=== PATIENT | female | born 1980 | race American Indian/Alaskan Native ===

== ENCOUNTER 2017-08-11 20:59 | Inpatient (IN) | payer MEDICAID, OTHER ==
[2017-08-11] MEDS ORDERED: LACTATED RINGERS 500 ML IV ONE (21:26)
[2017-08-11] MEDS ORDERED: LACTATED RINGERS 1,000 ML IV ONE (21:26)
[2017-08-11] MEDS ORDERED: LACTATED RINGERS 1,000 ML ONE (21:30)
[2017-08-12] MEDS ORDERED: PEPCID IV ONE (00:35)
[2017-08-12] MEDS ORDERED: BICITRA PO ONE (00:35)
[2017-08-12] MEDS ORDERED: REGLAN IV ONE (00:35)
--- NOTE | 2017-08-12 00:41 | History and Physical Report ---
History of Present Illness Date of examination: 08/12/17 Date of admission: 08/12/2017 Chief complaint: I haven't felt the baby move History of present illness: Patient francois 37 year old who presents at 33.1 weeks with complaint of decreased movement. FHT were in the 170s with minimal variability. BPP was ordered which showed 2/8 for fluid only. Past History Past Medical History: hypertension Past Surgical History: no surgical history [employer] History: herpes Family/Genetic History: none Social history: - Obstetrical History Expected Date of Delivery: 09/28/17 Actual Gestation: 33 Week(s) 2 Day(s) : 7 Para: 5 Number of Living Children: 4 #2 Infant Gender: Female year: Method of Delivery: Vaginal Complications: other (IUFD at term) Medications and Allergies Allergies Allergy/AdvReac Type Severity Reaction Status Date / Time No Known Allergies Allergy Verified 08/11/17 21:26 Active Meds: Active Medications Citric Acid/Sodium Citrate (Bicitra) 30 ml PO ONCE ONE Stop: 08/12/17 00:36 Famotidine (Pepcid) 20 mg IV ONCE ONE Stop: 08/12/17 00:36 Cefazolin Sodium (Ancef/Sterile Water 2 Gm/20 Ml) 2 gm in 20 mls @ 80 mls/hr IV PREOP NR PRN Reason: Protocol Lactated Ringer's (Lactated Ringers) 1,000 mls @ 2,250 mls/hr IV PREOP PEPPER Stop: 08/13/17 01:27 Oxytocin/Sodium Chloride (Pitocin/Ns 20 Unit/1000ml Drip) 20 units in 1,000 mls @ 0 mls/hr IV TITR PEPPER PRN Reason: As Directed Metoclopramide HCl (Reglan) 10 mg IV ONCE ONE Stop: 08/12/17 00:36 Review of Systems All systems: negative Genitourinary: other (decreased movement) - Vital Signs Vital signs: Vital Signs Pulse BP Pulse Ox 81 163/98 100 08/11/17 21:12 08/11/17 21:12 08/11/17 21:12 Temp Pulse Resp BP Pulse Ox 94 H 174/109 100 08/12/17 00:34 08/12/17 00:34 08/12/17 00:34 - Physical Exam Breasts: Cardiovascular: Regular rate, Normal S1, Normal S2 Lungs: Positive: Clear to auscultation, Normal air movement Abdomen: Positive: normal appearance, soft, normal bowel sounds. Negative: distention, tenderness Genitourinary (Female): Positive: normal external genitalia, normal perenium Vulva: both: normal Vagina: Positive: normal moisture. Negative: discharge Cervix: Negative: lesion, discharge Uterus: Positive: normal size, normal contour Adnexa: both: normal Anus/Rectum: Positive: normal perianal skin, heme negative. Negative: rectal mass, hemorrhoids Extremities: Deep Tendon Reflex Grade: Normal +2 - Obstetrical FHR: auscultation normal, category 2 Cervical Dilatation: 0 Results All other labs normal. Assessment and Plan IUp at 33.2 weeks with non reassuring testing and 2/8 bpp. Fetus has nuchal cord x 3. Will proceed with urgent for well-being. Consents signed and placed on chart.
--- NOTE | 2017-08-12 00:46 | Ultrasound Report ---
FINAL REPORT EXAM: US OB BPP WO NON-STRESS HISTORY: DECREASED MOVEMENT TECHNIQUE: A limited sonographic evaluation was obtained of the uterus with biophysical profile. FINDINGS: A biophysical profile was performed. A score of 0 out of 2 was obtained for breathing movements. A score of 0 out of 2 was obtained for movements. A score of 0 out of 2 was obtained force posture and tone. For qualitative amniotic fluid volume a score of 2 out of 2 was obtained. The total biophysical profile score was 2 out of 8. The heart rate ranged from 100 BPM up to 171 BPM. The umbilical cord was noted to be around the neck 3 times. A complete survey of organs was not obtained. In the uterine fundus there is a myometrial mass most likely representing fibroid measuring 4.7 cm x 5.3 cm x 5.1 cm. IMPRESSION: Biophysical profile score of 2 out of 8. heart rate ranged from 100 BPM up to 171 BPM. The umbilical cord is wrapped around the neck up to 3 times. Fibroid in the uterine fundus measuring 5.3 cm in dimension.
[2017-08-12 00:49] LABS: Basophils % (Auto) 0.3 % (0.0-1.8); Eosinophils % (Auto) 1.1 % (0.0-4.3); Hematocrit 32.5 % (30.3-42.9); Hemoglobin 10.9 gm/dl (10.1-14.3); Mean Corpuscular HGB Conc 34 % (30-34); Mean Corpuscular Hemoglobin 32 pg (28-32); Mean Corpuscular Volume 96 fl (79-97); Platelet Count 172 K/mm3 (140-440); Red Blood Count 3.38 M/mm3 (3.65-5.03); Red Cell Distribution Width 13.3 % (13.2-15.2); White Blood Count 6.2 K/mm3 (4.5-11.0)
[2017-08-12] MEDS ORDERED: ANCEF/STERILE WATER 2 GM/20 ML 2 GM/20 ML SYRINGE IV NR (01:00)
[2017-08-12] MEDS ORDERED: LACTATED RINGERS 1,000 ML IV SCH (01:00)
[2017-08-12] MEDS ORDERED: PITOCin/NS 20 UNIT/1000ML DRIP 20 UNITS/1,000 ML BAG IV SCH ×2 (01:00→04:21)
[2017-08-12] MEDS ORDERED: ANCEF/STERILE WATER 2 GM/20 ML IV ONE (01:20)
[2017-08-12] MEDS ORDERED: MORPHINE ONE (01:24)
[2017-08-12] MEDS ORDERED: TORADOL ONE (01:41)
[2017-08-12] MEDS ORDERED: WATER FOR IRRIG STERILE IR ONE (01:41)
[2017-08-12] MEDS ORDERED: NACL 0.9% IR ONE (01:41)
--- NOTE | 2017-08-12 02:35 | Procedure Note ---
OB Delivery Note - Delivery Date of Delivery: 08/12/17 Surgeon: PAMELA FORD Estimated blood loss: 500cc - Section Preop diagnosis: nonreassuring FHR tracing Postop diagnosis: same (with nuchal cord x 5) section procedure: primary low transverse Disposition: PACU Complications: none Narrative: see op report - A at 1 minute: 3 at 5 minutes: 3 (8 at 10 minutes) Infant Gender: Male
--- NOTE | 2017-08-12 02:40 | Operative Report ---
Operative Report Operative Report: The operative report for patient name Rani Del Castillo Date of service 08/12/2017 Preoperative diagnosis: Intrauterine at 33-2/7 weeks 2. Nonreassuring testing Postoperative diagnosis: Same with nuchal cord 5 Procedure:[ Primary] low transverse section Surgeon: Dr. Silvia Rodriguez EBL: 500 Urine output: 800 mL IV fluids: 1000 mL Findings: Viable [male] in the vertex occiput posterior position. Weight 4 lbs. 10 oz., 2086 g, Apgars 3,3,8 ,4 cm fundal subserosal fibroid Specimens: None Complications: None Procedure: The patient was admitted to the OR with IV running and in place. She was properly identified as herself. Her spinal was placed upon entry into the OR without difficulty. She was placed in the dorsal supine position with a leftward tilt. A Suresh catheter was inserted. She was then prepped and draped in the normal sterile fashion. An Allis test was used to confirm adequate anesthesia. Once confirmed, the incision was made with the scalpel and carried to the underlying fascia using the scalpel and the Bovie. The fascia was incised in the midline and incision was extended bilaterally using the curved Fischer scissors. The fascia was then dissected from the underlying rectus muscles in a series of sharp and blunt dissection using the Fischer scissors. Muscles were in the in the midline sharply using Metzenbaum scissors and the peritoneum was entered into bluntly using the surgeon's fingers. A bladder blade was then placed into the incision to protect the bladder. Following this the bladder flap was created. Hysterotomy incision was then made in the scalpel. Upon uterine entry, the amniotic sac was ruptured for clear fluid. The was then delivered in the occiput [ posterior] position. His mouth and nose were suctioned on the field. The cord was clamped and cut after which it was unwrapped from his neck. And he was handed to the waiting NICU personnel. The uterus was then exteriorized and cleared of all clots and debris. The hysterotomy incision was then closed in a running locked fashion using 0 Vicryl. The abdomen was then copiously irrigated with warm normal saline. Following this the uterus was replaced into the abdominal cavity. At this point the muscles were reapproximated in the midline using individual sutures of 0 Vicryl. Following this the fascia was closed in a running fashion using 0 Vicryl. Tissue was then copiously irrigated. Skin was closed in a running fashion using 3-0 Monocryl. The sponge lap needle and instrument counts were correct 2. The patient tolerated the procedure well. She was taken to recovery in stable condition.
--- NOTE | 2017-08-12 02:40 | Anesthesia Consultation ---
Anesthesia Consult and Med Hx Date of service: 08/12/17 - Airway Anesthetic Teeth Evaluation: Good ROM Head & Neck: Adequate Mental/Hyoid Distance: Adequate Mallampati Class: Class II Intubation Access Assessment: Good - Pulmonary Exam CTA: Yes - Cardiac Exam Cardiac Exam: No Murmur - Pre-Operative Health Status ASA Pre-Surgery Classification: ASA2 Proposed Anesthetic Plan: Spinal - Pulmonary Hx Asthma: No - Cardiovascular System Hx Hypertension: Yes - Central Nervous System Hx Seizures: No Hx Psychiatric Problems: No - Endocrine Hx Renal Disease: No Hx Hypothyroidism: No Hx Hyperthyroidism: No - Hematic Hx Anemia: No Hx Sickle Cell Disease: No - Other Systems Hx Alcohol Use: No
[2017-08-12] MEDS ORDERED: MORPHINE IV PRN ×2 (02:41→04:21)
[2017-08-12] MEDS ORDERED: PHENERGAN PR PRN ×2 (02:41→04:21)
[2017-08-12] MEDS ORDERED: PHENERGAN PO PRN (02:41)
[2017-08-12] MEDS ORDERED: NARCAN 0.4 MG/1 ML IV PRN ×2 (02:41→04:21)
--- NOTE | 2017-08-12 02:41 | Post Anesthesia Evaluation ---
- Post Anesthesia Evaluation Patient Participated: Yes Airway Patent: Yes Stable Respiratory Function: Yes Nausea/Vomiting: No Temp > 96.8F: Yes Pain Manageable: Yes Adequeate Hydration: Yes Anesthesia Complications: No
[2017-08-12] MEDS ORDERED: SODIUM CHLORIDE FLUSH SYRINGE 10 ML IV NR ×2 (03:00→04:21)
[2017-08-12] MEDS ORDERED: fentaNYL-BUPIV 2 MCG/ML-0.125% 200 MCG/100 ML BAG EPIDURAL SCH (03:00)
[2017-08-12] MEDS ORDERED: LANSINOH TP PRN (04:21)
[2017-08-12] MEDS ORDERED: MYLICON PO PRN (04:21)
[2017-08-12] MEDS ORDERED: TUCKS PAD TP PRN (04:21)
[2017-08-12] MEDS ORDERED: D5LR 1,000 ML IV SCH (04:21)
[2017-08-12] MEDS ORDERED: ZOFRAN IV PRN (04:21)
[2017-08-12] MEDS ORDERED: TORADOL IV PRN (04:21)
[2017-08-12] MEDS: ZOFRAN IV PRN ×2 (04:44→12:10)
[2017-08-12 17:22] LABS: Hematocrit 31.4 % (30.3-42.9); Hemoglobin 10.4 gm/dl (10.1-14.3)
[2017-08-13] MEDS: MOTRIN PO PRN ×2 (02:08→18:00)
[2017-08-13] MEDS: PERCOCET 5/325 PO PRN ×2 (02:09→10:20)
--- NOTE | 2017-08-13 09:40 | Progress Note ---
Subjective Date of service: 08/13/17 Interval history: Pt is doing well. No residual numbness. Objective - Constitutional Vitals: Vital Signs - 12hr 08/13/17 08/13/17 08/13/17 00:25 04:45 08:00 Temperature 98.7 F 98.7 F 98.4 F Pulse Rate 78 74 83 Respiratory 18 18 18 Rate Blood Pressure 148/71 127/74 135/71 [Right] O2 Sat by Pulse 99 Oximetry - Labs CBC & Chem 7: 08/12/17 16:48
[2017-08-13] MEDS: PRENATAL VITAMIN PO SCH (10:20)
[2017-08-13] MEDS: FEOSOL PO SCH (12:13)
--- NOTE | 2017-08-13 14:41 | Progress Note ---
Subjective - Subjective Date of service: 08/13/17 Interval history: Patient francois 37 year old who presents at 33.1 weeks with complaint of decreased movement. FHT were in the 170s with minimal variability. BPP was ordered which showed 2/8 for fluid only. Patient reports: appetite normal, voiding normally, pain well controlled, ambulating normally : doing well Objective - Vital Signs Latest vital signs: Vital Signs Temp Pulse Resp BP Pulse Ox 08/13/17 08:00 98.4 F 83 18 135/71 99 08/13/17 04:45 98.7 F 74 18 127/74 08/13/17 00:25 98.7 F 78 18 148/71 08/12/17 21:30 98.6 F 69 22 125/72 08/12/17 17:04 97.6 F 63 18 133/74 Intake and Output 08/12/17 08/13/17 08/13/17 22:59 06:59 14:59 Intake Total 1600 100 240 Output Total 300 1200 Balance 1300 -1100 240 Intake: IV 1000 D5lr 1,000 ml @ 125 mls/ 1000 hr IV DIRECT PEPPER Rx#: [id number] Oral 360 240 Intake, Free Water 240 100 Output: Urine 300 1200 Void 300 1200 Other: Total, Intake Amount 360 240 Total, Output Amount 300 700 # Voids Void 1 - Exam Breasts: Present: deferred Cardiovascular: Present: Regular rate, Normal S1 Lungs: Present: Clear to auscultation, Normal air movement Abdomen: Present: normal appearance, soft, normal bowel sounds Uterus: Present: normal, firm Extremities: Present: normal Incision: Present: normal, dry, intact, warm
[2017-08-13] MEDS: MILK OF MAGNESIA PO PRN (23:51)
[2017-08-14] MEDS: MOTRIN PO PRN ×2 (05:00→16:11)
[2017-08-14] MEDS: FEOSOL PO SCH (10:11)
[2017-08-14] MEDS: PRENATAL VITAMIN PO SCH (10:12)
[2017-08-14] MEDS: PERCOCET 5/325 PO PRN (10:12)
[2017-08-14] MEDS: MILK OF MAGNESIA PO PRN (18:43)
[2017-08-15] MEDS: MOTRIN PO PRN (06:49)
--- NOTE | 2017-08-15 09:53 | Discharge Summary ---
Providers - Providers Date of Admission: 08/12/17 01:06 Date of discharge: 08/15/17 Attending physician: PAMELA FORD Primary care physician: PAMELA FORD Hospitalization Reason for admission: other (non reassurring testing) Delivery: Procedure: primary low transverse Incision: normal, dry, intact complications: none Discharge diagnosis: delivery baby: male Hospital course: unremarkable Condition at discharge: Good Disposition: DC-01 TO HOME OR SELFCARE Plan - Discharge Medications Prescriptions: Docusate Sodium [Colace] 100 mg PO BID PRN #60 capsule PRN Reason: Constipation Ferrous Sulfate [Feosol 325 MG tab] 325 mg PO BID #60 tablet Ibuprofen [Motrin] 800 mg PO Q8HR PRN #40 tablet PRN Reason: Pain Oxycodone HCl/Acetaminophen [Percocet 7.5/325 mg] 1 each PO Q6HR PRN #50 tablet PRN Reason: Pain - Provider Discharge Summary Activity: routine, no sex for 6 weeks, no heavy lifting 4 weeks, no strenuous exercise Diet: routine Instructions: routine Additional instructions: [] Smoking cessation referral if applicable(refer to patient education folder for contact #) [] Refer to [facility] Booklet Call your doctor immediately for: * Fever > 100.5 * Heavy vaginal bleeding ( >1 pad per hour) * Severe persistent headache * Shortness of breath * Reddened, hot, painful area to leg or breast * Drainage or odor from incision. * Keep incision clean and dry at all times and follow doctor's instructions regarding bathing/showering - Follow up plan Follow up: PAMELA FORD MD [Primary Care Provider] - 14 Days
[2017-08-15] MEDS: PRENATAL VITAMIN PO SCH (11:00)
[2017-08-15] MEDS: FEOSOL PO SCH (11:01)
[2017-08-15 12:31] VITALS: BP 126/82
== END 2017-08-15 11:43 | disposition home or self-care (01) | DRG 765 ==
LOC: TRG 20:59 → APU 08-12 01:06 → OB 08-12 04:20
PROVIDERS: ADMIT Obstetrics & Gynecology; ATTEND Obstetrics & Gynecology
PROC: 10D00Z1 Extraction of Products of Conception, Low, Open Approach (ICD-10-PCS; principal; 2017-08-12)
PROC: 10907ZC Drainage of Amniotic Fluid, Therapeutic from Products of Conception, Via Natural or Artificial Opening (ICD-10-PCS; 2017-08-12)
DX: O60.14X0 Preterm labor third trimester with preterm delivery third trimester, not applicable or unspecified (principal); O16.4 Unspecified maternal hypertension, complicating childbirth; O76 Abnormality in fetal heart rate and rhythm complicating labor and delivery; O69.81X0 Labor and delivery complicated by cord around neck, without compression, not applicable or unspecified; Z3A.33 33 weeks gestation of pregnancy; Z37.0 Single live birth
CPT/HCPCS: 36415; 76819; 85014; 85018; 85025; 86850; 86900; 86901; 88307; J0690; J1885; J2270; J2405; J2590; J2765; J7120; J7121

== ENCOUNTER 2022-01-28 06:50 | Outpatient (CLI) | payer MEDICAID ==
[2022-01-28] MEDS ORDERED: LACTATED RINGERS 1,000 ML IV ONE (08:00)
[2022-01-28 08:08] LABS: Bacteria,Urine 3+ /HPF (Negative); Bilirubin,Urine NEG (Negative); Blood,Urine NEG (Negative); Color,Urine Yellow (Yellow); Hyaline Casts,Urine 1 /LPF; Mucus,Urine FEW /HPF; Protein,Urine <15 mg/dL mg/dL (Negative)
--- NOTE | 2022-01-28 08:59 | Ultrasound Report ---
ULTRASOUND BIOPHYSICAL PROFILE INDICATION: well being. COMPARISON: None available. FINDINGS: heart rate is 145 beats per minute. breathing movement = 2 Gross body movement = 2 tone = 2 Qualitative amniotic fluid volume = 2 IMPRESSION: biophysical profile = 04/12 Signer Name: Kota Devine Jr, MD Signed: 01/28/2022 8:54 AM Workstation Name: [id number]
[2022-01-28 09:31] LABS: Hematocrit 32.7 % (30.3-42.9); Hemoglobin 10.8 gm/dl (10.1-14.3); Mean Corpuscular HGB Conc 33 % (30-34); Mean Corpuscular Volume 95 fl (79-97); Platelet Count 220 K/mm3 (140-440); Red Blood Count 3.44 M/mm3 (3.65-5.03)
[2022-01-28 09:43] LABS: Alanine Aminotransferase 11 units/L (7-56)
[2022-01-28 09:52] VITALS: BP 129/80
== END 2022-01-28 10:27 | disposition home or self-care (01) ==
LOC: TRG 06:50 → APU 06:51 → TRG 10:27
PROVIDERS: ATTEND Obstetrics & Gynecology
DX: O36.8130 Decreased fetal movements, third trimester, not applicable or unspecified (principal); Z3A.31 31 weeks gestation of pregnancy
CPT/HCPCS: 36415; 59025; 76819; 81001; 82565; 83615; 84450; 84460; 84550; 85027; 96360; 96361; J7120

== ENCOUNTER 2022-03-12 09:00 | Outpatient (CLI) | payer MEDICAID ==
[2022-03-16 10:37] LABS: Hematocrit 31.6 % (30.3-42.9); Hemoglobin 10.6 gm/dl (10.1-14.3); Mean Corpuscular HGB Conc 34 % (30-34); Mean Corpuscular Volume 94 fl (79-97); Platelet Count 224 K/mm3 (140-440); Red Blood Count 3.37 M/mm3 (3.65-5.03); Red Cell Distribution Width 14.1 % (13.2-15.2)
[2022-03-16 16:43] VITALS: BP 143/87
== END 2022-03-12 23:59 | disposition home or self-care (01) ==
LOC: TRG 09:00 → APU 09:23 → UNDOADMOB 09:23 → INTOOBSV 09:23 → EDSTATUS 11:30 → UNDODISOB 13:50 → TRG 23:59
PROVIDERS: ATTEND Obstetrics & Gynecology
DX: O09.523 Supervision of elderly multigravida, third trimester (principal); O13.3 Gestational [pregnancy-induced] hypertension without significant proteinuria, third trimester; O99.353 Diseases of the nervous system complicating pregnancy, third trimester; G43.909 Migraine, unspecified, not intractable, without status migrainosus; Z3A.37 37 weeks gestation of pregnancy; Z20.822 Contact with and (suspected) exposure to COVID-19
CPT/HCPCS: 36415; 59025; 85027; 86592; U0003; 96360; G0378; G0379

== ENCOUNTER 2022-03-19 06:30 | Inpatient (IN) | payer MEDICAID ==
[2022-03-19] MEDS ORDERED: BICITRA ORAL LIQD 30ML PO SCH (13:22)
[2022-03-19] MEDS ORDERED: LACTATED RINGERS 1,000 ML IV SCH (13:30)
[2022-03-19 13:58] LABS: Basophils # (Auto) 0.2 K/mm3 (0.0-0.1); Eosinophils # (Auto) 0.1 K/mm3 (0.0-0.4); Eosinophils % (Auto) 1.1 % (0.0-4.3); Hematocrit 32.6 % (30.3-42.9); Lymphocytes # (Auto) 1.1 K/mm3 (1.2-5.4); Lymphocytes % (Auto) 18.2 % (13.4-35.0); Mean Corpuscular HGB Conc 34 % (30-34); Mean Corpuscular Volume 94 fl (79-97); Monocytes # (Auto) 0.4 K/mm3 (0.0-0.8); Monocytes % (Auto) 7.4 % (0.0-7.3); Platelet Count 226 K/mm3 (140-440); Red Blood Count 3.47 M/mm3 (3.65-5.03); Red Cell Distribution Width 14.3 % (13.2-15.2)
[2022-03-19] MEDS ORDERED: FAMOTIDINE 20 MG/2 ML INJ IV ONE (14:00)
[2022-03-19] MEDS ORDERED: OXYTOCIN DRIP 30 UNITS/500 ML BAG IV SCH (14:00)
[2022-03-19] MEDS ORDERED: METOCLOPRAMIDE 10 MG/2 ML INJ IV ONE (14:00)
--- NOTE | 2022-03-19 22:13 | History and Physical Report ---
History of Present Illness Date of examination: 03/19/22 Date of admission: 03/19/22 09:49 Chief complaint: I am here for my History of present illness: Patient is a 41-year-old 7 para 4 who presents for elective repeat at 39 weeks secondary to previous . Patient had a last C- section in 2016 secondary to nonreassuring heart tones. Prior to that she had a stillborn and has 2 other living children. Patient has a history of DVT and blood clots and has been on Lovenox therapy throughout the course of her . Past History Past Medical History: hypertension, hematologic disorders Past Surgical History: section Social history: - Obstetrical History Expected Date of Delivery: 03/26/22 Actual Gestation: 39 Week(s) 0 Day(s) : 9 Para: 4 Number of Living Children: 3 Medications and Allergies Allergies Allergy/AdvReac Type Severity Reaction Status Date / Time No Known Allergies Allergy Verified 03/19/22 13:22 Home Medications Medication Instructions Recorded Confirmed Last Taken Type Aspirin [Adult Aspirin] 81 mg PO DAILY 03/12/22 03/12/22 03/10/22 History Enoxaparin [Lovenox] 40 mg SQ Q12HR 03/12/22 03/12/22 03/11/22 History Vit-Fe Fumar-FA [ 1 tab PO QDAY 03/12/22 03/12/22 03/11/22 History Vitamin] labetaloL [Labetalol 200mg TAB] 200 mg PO BID 03/12/22 03/12/22 03/11/22 History Active Meds: Active Medications Citric Acid/Sodium Citrate (Bicitra Oral Liqd 30ml) 30 ml PO ONCE PEPPER Stop: 03/19/22 23:00 Lactated Ringer's (Lactated Ringers) 1,000 mls @ 2,250 mls/hr IV PREOP PEPPER Stop: 03/20/22 13:57 Oxytocin/Sodium Chloride (Pitocin/Ns 30 Unit/500ml) 30 units in 500 mls @ 0 mls/hr IV TITR PEPPER; Protocol Review of Systems All systems: negative - Vital Signs Vital signs: Vital Signs Pulse BP 78 154/88 03/19/22 12:26 03/19/22 12:26 Temp Pulse Resp BP Pulse Ox 101 H 140/88 100 03/19/22 22:06 03/19/22 18:25 03/19/22 22:06 - Physical Exam Breasts: Positive: deferred Cardiovascular: Regular rate, Normal S1, Normal S2 Lungs: Positive: Clear to auscultation, Normal air movement Abdomen: Positive: normal appearance, soft, normal bowel sounds. Negative: di stention, tenderness Genitourinary (Female): Positive: normal external genitalia, normal perenium Vulva: both: normal Vagina: Positive: normal moisture. Negative: discharge Cervix: Negative: lesion, discharge Uterus: Positive: normal size, normal contour Adnexa: both: normal Anus/Rectum: Positive: normal perianal skin, heme negative. Negative: rectal mass, hemorrhoids Extremities: Deep Tendon Reflex Grade: Normal +2 - Obstetrical FHR: auscultation normal Results Result Diagrams: 03/19/22 13:40 Abnormal lab results 03/19/22 Range/Units 13:40 RBC 3.47 L (3.65-5.03) M/mm3 [place] % (Auto) 7.4 H (0.0-7.3) % Baso % (Auto) 3.0 H (0.0-1.8) % Lymph # (Auto) 1.1 L (1.2-5.4) K/mm3 Baso # (Auto) 0.2 H (0.0-0.1) K/mm3 Seg Neutrophils % 70.3 H (40.0-70.0) % All other labs normal. Assessment and Plan IUP at 39 weeks here for repeat . We will admit for monitoring and make patient n.p.o. after midnight. Patient to have in the morning.
[2022-03-20] MEDS ORDERED: BICITRA ORAL LIQD 30ML PO ONE (07:35)
[2022-03-20] MEDS ORDERED: LACTATED RINGERS 1,000 ML IV SCH (07:45)
[2022-03-20] MEDS ORDERED: ceFAZolin/Water 2 GM/20 ML 2 GM/20 ML SYRINGE IV NR (08:00)
[2022-03-20] MEDS ORDERED: BICITRA ORAL LIQD 30ML ONE (10:05)
[2022-03-20] MEDS ORDERED: FAMOTIDINE 20 MG/2 ML INJ IV ONE (10:05)
[2022-03-20] MEDS ORDERED: METOCLOPRAMIDE 10 MG/2 ML INJ ONE (10:05)
[2022-03-20] MEDS ORDERED: NALOXONE 0.4 MG/1 ML INJ IV PRN ×2 (10:25→15:14)
[2022-03-20] MEDS ORDERED: BUPIVACAINE/PF (0.5%) 5 MG/1 ML 30 ML VIAL INFILTRATI ONE (11:00)
[2022-03-20] MEDS ORDERED: diphenhydrAMINE 50 MG/ML VIAL IV PRN (11:00)
[2022-03-20] MEDS ORDERED: PROMETHAZINE 25 MG RECT SUPP PR PRN (11:00)
[2022-03-20] MEDS ORDERED: KETOROLAC 30 MG/1 ML INJ ONE (11:00)
[2022-03-20] MEDS ORDERED: HYDROmorphone 1 MG/1 ML INJ IV PRN (11:00)
[2022-03-20] MEDS ORDERED: NalbUPHINE 10 MG/1 ML INJ IV PRN (11:00)
[2022-03-20] MEDS ORDERED: ONDANSETRON 4 MG/2 ML INJ IV PRN (11:00)
[2022-03-20] MEDS ORDERED: ONDANSETRON 4 MG/2 ML INJ ONE (11:00)
[2022-03-20] MEDS ORDERED: PHENYLEPHRINE/NS 1,000 MCG/10 ML SYRINGE (OR USE) IV ONE (11:00)
[2022-03-20] MEDS ORDERED: PROMETHAZINE 25 MG TAB PO PRN (11:00)
[2022-03-20] MEDS ORDERED: ceFAZolin/STERILE WATER 2 GM/20 ML SYRINGE IV ONE (11:05)
[2022-03-20] MEDS ORDERED: SODIUM CHLORIDE 0.9% IRR 1,500 ML BOTTLE IR ONE (11:05)
[2022-03-20] MEDS ORDERED: WATER FOR IRRIG STERILE 1,500 ML BOTTLE IR ONE (11:05)
[2022-03-20] MEDS ORDERED: LACTATED RINGERS 1,000 ML ONE (11:26)
[2022-03-20] MEDS ORDERED: METHYLERGONOVINE MALEATE 0.2 MG/ML VIAL IM ONE (11:55)
[2022-03-20] MEDS ORDERED: fentaNYL 100 MCG/2 ML INJ ONE (11:58)
--- NOTE | 2022-03-20 12:40 | Anesthesia Day of Surgery ---
Anesthesia Day of Surgery - Day of Surgery Patient Examined: Yes Patient H&P Reviewed: Yes Patient is NPO: Yes Beta Blockers: No Cardiac Clearance: No Pulmonary Clearance: No Jonas's Test: N/A
--- NOTE | 2022-03-20 12:41 | Anesthesia Consultation ---
Anesthesia Consult and Med Hx Date of service: 03/20/22 - Airway Anesthetic Teeth Evaluation: Good ROM Head & Neck: Adequate Mental/Hyoid Distance: Adequate Mallampati Class: Class II Intubation Access Assessment: Probably Good - Pulmonary Exam CTA: Yes - Cardiac Exam Cardiac Exam: RRR - Pre-Operative Health Status ASA Pre-Surgery Classification: ASA2 Proposed Anesthetic Plan: Spinal Nerve Block: TAP - Pulmonary Hx Smoking: No Hx Asthma: No COPD: No Hx Pneumonia: No Hx Sleep Apnea: No - Cardiovascular System Hx Hypertension: No Hx Heart Attack/AMI: No Hx Angina: No - Central Nervous System Hx Seizures: No Hx Psychiatric Problems: No - Gastrointestinal Hx Gastroesophageal Reflux Disease: No - Endocrine Hx Renal Disease: No Hx End Stage Renal Disease: No Hx Liver Disease: No Hx Insulin Dependent Diabetes: No Hx Non-Insulin Dependent Diabetes: No Hx Hypothyroidism: No Hx Hyperthyroidism: No - Hematic Hx Anemia: No Hx Sickle Cell Disease: No - Other Systems Hx Alcohol Use: No Hx Obesity: Yes - Additional Comments Anesthesia Medical History Comments: previous c/s
--- NOTE | 2022-03-20 12:42 | Progress Note ---
Spinal Anesthesia Block - Spinal Anesthesia Block Start Time: 10:40 Stop Time: 10:45 Performed by:: CLEVELAND SINGH Procedure: Spinal anesthesia block is being performed for [c/s]. H&P, labs have been reviewed. Patient's questions and concerns have been answered. Informed consent has been performed. Timeout has was performed. Patient in sitting position on side of bed. Sterile prep and drape was performed. 3 mL 1% lidocaine skin wheal at L [3]-L [4]. Needle introducer advanced. 24-gauge spinal needle advanced, [+] CSF [-] blood. [Marcaine 10mg and Precedex 5mcg] Spinal dose was given. All needles removed. Patient tolerated procedure well.
--- NOTE | 2022-03-20 12:59 | Procedure Note ---
OB Delivery Note - Delivery Date of Delivery: 03/20/22 Surgeon: PAMELA FORD Estimated blood loss: other (750) - Section Preop diagnosis: repeat Postop diagnosis: same section procedure: repeat low transverse, bilateral tubal ligation Disposition: PACU Complications: none Narrative: See op report - Infant A at 1 minute: 8 at 5 minutes: 9 Infant Gender: Female (7 pounds 1 ounce, 3210 g)
--- NOTE | 2022-03-20 13:03 | Operative Report ---
Operative Report Operative Report: Preoperative diagnosis: Intrauterine at 38-7 weeks 2. Previous x1 3. Undesired fertility Postoperative diagnosis: Same with pelvic adhesions Procedure: Repeat low transverse section, Bilateral tubal ligation Surgeon: Dr. Silvia Rodriguez EBL: 750 cc Urine output: 200 mL IV fluids: 1500 cc Findings: Viable female in the occiput posterior position weight 7 lbs. 1 oz. 3210 g Apgars 8 and 9. Otherwise normal pelvic anatomy Specimens: Portion of right and left fallopian tube Complications: None Procedure: The patient was admitted to the OR with IV running and in place. She was properly identified as herself. She was given spinal anesthesia in the OR without difficulty. She was placed in the dorsal supine position with a leftward tilt. A Suresh catheter was inserted. She was then prepped and draped in the normal sterile fashion. An Allis test was used to confirm adequate anesthesia. Once confirmed, the incision was made with the scalpel and carried to the underlying fascia using the scalpel and the Bovie. The fascia was incised in the midline and incision was extended bilaterally using the curved Fischer scissors. The fascia was then dissected from the underlying rectus muscles in a series of sharp and blunt dissection using the Fischer scissors. The fascia was densely adherent to the underlying muscle. Muscles were in the in the midline sharply using Metzenbaum scissors and the peritoneum was entered into bluntly using the surgeon's fingers. A bladder blade was then placed into the incision to protect the bladder. Following this the bladder flap was created. Hysterotomy incision was then made in the scalpel. Upon uterine entry, the amniotic sac was ruptured for clear fluid. The infant was then delivered without difficulty.. Her mouth and nose were suctioned on the field. The cord was clamped and cut and he was handed to the waiting NICU personnel. The uterus was then exteriorized and cleared of all clots and debris. The hysterotomy incision was then closed in a running locked fashion using 0 Vicryl. The abdomen was then copiously irrigated with warm normal saline. Attention was turned the the fallopian tubes. Each tube was identified and followed out the the fimbriated end. Each tube was grasped in the midportion and ligated in the [place] style Tubal ligation. Following this the uterus was replaced into the abdominal cavity. At this point the muscles were reapproximated in the midline using individual sutures of 0 Vicryl. Following this the fascia was closed in a running fashion using 0 Vicryl. Tissue was then copiously irrigated. Retention sutures were placed in the subcutaneous fat tissue Skin was closed in a running fashion using 3-0 Monocryl. The sponge lap needle and instrument counts were correct 2. The patient tolerated the procedure well. She was taken to recovery in stable condition.
[2022-03-20] MEDS ORDERED: LANOLIN/ZINC/DIMETHICONE (LANSINOH) 7 GM TP PRN (15:14)
[2022-03-20] MEDS ORDERED: WITCH HAZEL/ GLYCERIN PAD TP PRN (15:14)
[2022-03-20] MEDS ORDERED: OXYTOCIN DRIP 30 UNITS/500 ML BAG IV SCH (15:14)
[2022-03-20] MEDS ORDERED: D5W/LACTATED RINGERS 1,000 ML IV SCH (15:14)
[2022-03-20] MEDS: MORPHINE 4 MG/1 ML INJ IV PRN (20:25)
[2022-03-20] MEDS: oxyCODONE /ACETAMINOPHEN 5-325MG TAB PO PRN (22:05)
[2022-03-21 00:56] LABS: Hematocrit 31.2 % (30.3-42.9); Hemoglobin 10.3 gm/dl (10.1-14.3)
[2022-03-21] MEDS: MORPHINE 4 MG/1 ML INJ IV PRN ×2 (02:08→07:28)
[2022-03-21] MEDS: oxyCODONE /ACETAMINOPHEN 5-325MG TAB PO PRN ×3 (04:17→18:34)
--- NOTE | 2022-03-21 11:59 | Progress Note ---
Assessment and Plan POD 1 s/p RLTCS. Doing well. Plan for discharge on tomorrow. Will begin on Lovenox tonight. Subjective - Subjective Date of service: 03/21/22 Interval history: Patient is a 41-year-old 7 para 4 who presents for elective repeat at 39 weeks secondary to previous . Patient had a last C- section in 2017 secondary to nonreassuring heart tones. Prior to that she had a stillborn and has 2 other living children. Patient has a history of DVT and blood clots and has been on Lovenox therapy throughout the course of her . Patient reports: appetite normal, voiding normally, pain well controlled, ambulating normally [place]: doing well Objective - Vital Signs Latest vital signs: Vital Signs Temp Pulse Resp BP BP Pulse Ox Pulse Ox 03/21/22 10:48 86 138/93 03/21/22 09:00 98.3 F 86 20 138/93 96 03/21/22 07:28 20 03/21/22 05:01 98.2 F 86 20 151/87 94 03/20/22 23:19 139/84 03/20/22 22:02 160/91 03/20/22 22:00 160/91 03/20/22 20:25 98.5 F 99 H 20 170/101 97 03/20/22 20:00 100 03/20/22 14:45 97.2 F L 78 20 149/91 100 100 03/20/22 14:15 79 159/98 99 03/20/22 14:00 97.9 F 70 20 154/93 100 03/20/22 13:45 74 19 162/84 100 03/20/22 13:30 86 20 168/91 97 03/20/22 13:15 97.9 F 72 17 167/78 99 03/20/22 13:00 74 13 156/82 100 03/20/22 12:50 72 21 151/80 97 03/20/22 12:45 78 19 159/85 99 03/20/22 12:38 97.6 F 77 11 L 152/77 97 Intake and Output 03/20/22 03/21/22 03/21/22 22:59 06:59 14:59 Intake Total 120 240 320 Output Total 1200 Balance 120 -960 320 Intake: Oral 120 320 Intake, Free Water 120 120 Output: Urine 1200 Indwelling Catheter 1200 Other: Total, Intake Amount 120 320 Total, Output Amount 1200 # Voids Void 0 - Exam Cardiovascular: Present: Regular rate, Normal S1, Normal S2 Lungs: Present: Clear to auscultation, Normal air movement Abdomen: Present: normal appearance, soft Vulva: both: normal Uterus: Present: normal, firm, fundal height below umbilicus Extremities: Present: normal Incision: Present: normal, dry, intact, dressed
[2022-03-21] MEDS ORDERED: HYDROmorphone 2 MG TAB PO PRN (21:04)
[2022-03-21] MEDS: ENOXAPARIN 30 MG/0.3 ML INJ SUB-Q SCH (21:24)
[2022-03-22] MEDS: oxyCODONE /ACETAMINOPHEN 5-325MG TAB PO PRN ×2 (04:07→11:17)
[2022-03-22] MEDS: ENOXAPARIN 30 MG/0.3 ML INJ SUB-Q SCH (11:06)
[2022-03-22 16:47] VITALS: BP 140/82
--- NOTE | 2022-03-22 17:55 | Discharge Summary ---
Providers - Providers Date of Admission: 03/19/22 09:49 Attending physician: PAMELA FORD Primary care physician: PAMELA FORD Hospitalization Reason for admission: section Delivery: Procedure: repeat low transverse Laceration: none Incision: normal, dry, intact, dressed complications: none Discharge diagnosis: IUP at term delivered baby: female Hospital course: unremarkable Condition at discharge: Good Disposition: 01 HOME / SELF CARE / HOMELESS Plan - Discharge Medications Prescriptions: Docusate Sodium [Colace] 100 mg PO BID #60 capsule labetaloL [Labetalol 200mg TAB] 200 mg PO BID #60 oxyCODONE /ACETAMINOPHEN [Percocet 5/325] 2 tab PO Q6HR PRN #40 tablet PRN Reason: Pain - Provider Discharge Summary Activity: routine, no sex for 6 weeks, no heavy lifting 4 weeks, no strenuous exercise Diet: routine Instructions: routine Additional instructions: [] Smoking cessation referral if applicable(refer to patient education folder for contact #) [] Refer to [facility] Booklet Call your doctor immediately for: * Fever > 100.5 * Heavy vaginal bleeding ( >1 pad per hour) * Severe persistent headache * Shortness of breath * Reddened, hot, painful area to leg or breast * Drainage or odor from incision. * Keep incision clean and dry at all times and follow doctor's instructions regarding bathing/showering - Follow up plan Follow up: PAMELA FORD MD [Primary Care Provider] - 14 Days
--- NOTE | 2022-03-23 03:54 | Post Anesthesia Evaluation ---
- Post Anesthesia Evaluation Patient Participated: No Airway Patent: Yes Stable Respiratory Function: Yes Nausea/Vomiting: No Temp > 96.8F: Yes Pain Manageable: Yes Adequeate Hydration: Yes Anesthesia Complications: No Block Receding Appropriately: Yes Patient on Ventilator: No
== END 2022-03-22 19:03 | disposition home or self-care (01) | DRG 765 ==
LOC: UNDOADMIN 09:49 → APU 09:49 → LD 20:57 → OB 03-20 14:53 → APU 03-20 15:14 → LD 03-20 15:14 → UNDODISIN 03-22 19:03
PROVIDERS: ADMIT Obstetrics & Gynecology; ATTEND Obstetrics & Gynecology
PROC: 10D00Z1 Extraction of Products of Conception, Low, Open Approach (ICD-10-PCS; principal; 2022-03-20)
PROC: 0UB70ZZ Excision of Bilateral Fallopian Tubes, Open Approach (ICD-10-PCS; 2022-03-20)
DX: O34.211 Maternal care for low transverse scar from previous cesarean delivery (principal); O10.92 Unspecified pre-existing hypertension complicating childbirth; Z37.0 Single live birth; Z79.82 Long term (current) use of aspirin; Z3A.38 38 weeks gestation of pregnancy; O99.62 Diseases of the digestive system complicating childbirth; K66.0 Peritoneal adhesions (postprocedural) (postinfection)
CPT/HCPCS: 36415; 85014; 85018; 85025; 86850; 86900; 86901; 88302; G0378; J3490; J7060; J7121; J0690; J1650; J1885; J2270; J2370; J2405; J2765; J3010; J7120; U0003